=== PATIENT | female | born 1950 | race African-American/Black ===

== ENCOUNTER 2020-06-27 17:43 | Emergency (ER) | payer OTHER ==
[~2020-06-27] VITALS: Ht 167.6 cm; Wt 75.0 kg
[2020-06-27] MEDS ORDERED: CLONIDINE 0.2MG TABLET PO ONE (18:15)
[2020-06-27 18:49] LABS: BASOPHILS % 0.8 % (0.0-2.0); EOSINOPHILS % 3.2 % (0.0-5.0); HEMOGLOBIN. 12.2 g/dL (12.0-16.0); LYMPHOCYTES % 26.9 % (20.0-50.0); MEAN CORPUSCULAR HEMOGLOBIN 27.8 pg (28.0-32.0); MEAN CORPUSCULAR VOLUME 84.4 fL (81.0-99.0); MEAN PLATELET VOLUME 8.3 fl (7.4-10.4); MONOCYTES % 8.9 % (2.0-8.0); NEUTROPHILS % 60.2 % (40.0-76.0); PLATELET 272 x1000/uL (130-400); RED BLOOD CELL COUNT 4.39 mill/uL (4.2-5.4)
[2020-06-27 18:53] LABS: CHLORIDE 100 mEq/L (98-107)
[2020-06-27 18:57] LABS: PROTHROMBIN TIME 10.1 sec (9.6-11.0)
[2020-06-27] MEDS ORDERED: INSULIN REGULAR (HUMULIN R) 300UNITS/3ML VIAL SUBCUT NR (19:30)
[2020-06-27 22:21] VITALS: BP 165/93
== END 2020-06-27 23:06 | disposition short-term general hospital (02) ==
LOC: ER 17:43 → CANBEDREQ 23:54
DX: I11.9 Hypertensive heart disease without heart failure (principal); E11.65 Type 2 diabetes mellitus with hyperglycemia; R07.89 Other chest pain; I25.10 Atherosclerotic heart disease of native coronary artery without angina pectoris; I25.2 Old myocardial infarction; Z95.1 Presence of aortocoronary bypass graft; Z79.82 Long term (current) use of aspirin
CPT/HCPCS: 36415; 70450; 71045; 80053; 82010; 82962; 83880; 84484; 85025; 85610; 93005; 99285; J1815